=== PATIENT | female | born 1985 | race Two or more races ===

== ENCOUNTER 2017-11-03 01:24 | Day surgery (SDC) | payer OTHER ==
[~2017-11-03] VITALS: Ht 149.9 cm; Wt 81.9 kg
[2017-11-03] MEDS ORDERED: D5%-0.45% NACL 1,000 ML IV ONE (01:36)
[2017-11-03] MEDS ORDERED: PROMETHAZINE 25 MG/ML, 1ML ONE (01:46)
[2017-11-03] MEDS ORDERED: MORPHINE SULFATE 4 MG/ML, 1ML ONE (01:47)
[2017-11-03] MEDS ORDERED: CEFOTETAN PMX 1GM/50ML 50 ML ONE (01:47)
[2017-11-03] MEDS ORDERED: CEFOTETAN PMX 1GM/50ML 50 ML IV ONE (02:00)
[2017-11-03] MEDS ORDERED: MORPHINE SULFATE 4 MG/ML, 1ML IVPush PRN ×3 (02:00→10:00)
[2017-11-03] MEDS ORDERED: PROMETHAZINE 25 MG/ML, 1ML IM PRN (02:00)
[2017-11-03] MEDS ORDERED: BUPIVACAINE 0.25% ONE (02:27)
[2017-11-03] MEDS ORDERED: EPINEPHRINE 1 MG/ML, 1ML ONE (02:27)
[2017-11-03 02:56] VITALS: BP 115/54
[2017-11-03] MEDS ORDERED: CEFOTETAN 2 GM ONE (06:30)
[2017-11-03] MEDS ORDERED: MIDAZOLAM 1 MG/ML, 2ML ONE (06:30)
[2017-11-03] MEDS ORDERED: FENTANYL PF 100 MCG/2ML ONE (06:30)
[2017-11-03] MEDS ORDERED: LIDOCAINE GEL 2%, 5ML ONE (06:31)
[2017-11-03] MEDS ORDERED: ONDANSETRON 2MG/ML, 2ML ONE (06:58)
[2017-11-03] MEDS ORDERED: GLYCOPYRROLATE 0.2MG/1ML, 5ML ONE (06:58)
[2017-11-03] MEDS ORDERED: SUCCINYLCHOLINE 20 MG/ML, 10ML ONE (06:58)
[2017-11-03] MEDS ORDERED: NEOSTIGMINE 1 MG/ML, 10ML ONE (06:58)
[2017-11-03] MEDS ORDERED: DEXAMETHASONE 4 MG/ML, 1ML ONE (06:58)
[2017-11-03] MEDS ORDERED: CEFAZOLIN 1,000 MG ONE (06:58)
[2017-11-03] MEDS ORDERED: PROPOFOL 10 MG/ML, 20ML ONE (06:58)
[2017-11-03] MEDS ORDERED: ROCURONIUM 10MG/ML,5ML ONE ×2 (06:59)
[2017-11-03] MEDS ORDERED: KETOROLAC 30 MG/1 ML ONE (06:59)
[2017-11-03] MEDS ORDERED: PROMETHAZINE 25 MG/ML, 1ML IV PRN (07:30)
[2017-11-03] MEDS ORDERED: ALBUTEROL/IPRATROPIUM 2.5MG/0.5MG, 3 ML NPPB PRN (07:30)
[2017-11-03] MEDS ORDERED: FENTANYL PF 100 MCG/2ML IV PRN (07:30)
[2017-11-03] MEDS ORDERED: SCOPOLAMINE PATCH, 1.5MG PATCH.TD72 TD PRN (07:30)
[2017-11-03] MEDS ORDERED: MIDAZOLAM 1 MG/ML, 2ML IV PRN (07:30)
[2017-11-03] MEDS ORDERED: MEPERIDINE/PF 25MG/0.5ML IVPush PRN (07:30)
[2017-11-03] MEDS ORDERED: ACETAMINOPHEN 325 MG TABLET PO PRN (07:30)
[2017-11-03] MEDS ORDERED: EPHEDRINE 50 MG/ML, 1ML IM PRN (07:30)
[2017-11-03] MEDS ORDERED: LABETALOL 5MG/ML, 20ML IV PRN (07:30)
[2017-11-03] MEDS ORDERED: HYDROmorphone 1 MG/ML, 1ML IV PRN (07:30)
[2017-11-03] MEDS ORDERED: OXYcodone 5 MG/5 ML ORAL.SOL UDC PO PRN (07:30)
[2017-11-03] MEDS ORDERED: HYDROcodone/APAP 5/325 TABLET PO PRN (10:00)
[2017-11-03] MEDS ORDERED: HYDR-3240 PO (13:15)
== END 2017-11-03 13:39 ==
LOC: ED 01:51 → UNDOADMIN 01:54 → EDIP 01:54 → 4NOR 02:36 → EDIP 02:36 → OR 07:20 → UNDODISIN 13:39 → OR 13:39
PROVIDERS: ATTEND Surgery
DX: K35.80 Unspecified acute appendicitis (principal); Z88.1 Allergy status to other antibiotic agents; Z88.8 Allergy status to other drugs, medicaments and biological substances
CPT/HCPCS: 44970; 88304; 96365; 96375; 99285; J0171; J0330; J0690; J1100; J1885; J2250; J2405; J2550; J2704; J2710; J3010; J3490; S0074

== ENCOUNTER → 2018-06-05 | Outpatient (CLI) | payer OTHER ==
[~2018-06-05] MED LIST: HYDR-3240 PO
== END | disposition home or self-care (01) ==
LOC: CARD 14:13
PROVIDERS: ATTEND Orthopaedic Surgery
DX: R07.9 Chest pain, unspecified (principal); J45.909 Unspecified asthma, uncomplicated
CPT/HCPCS: 71046; 94060; 94726; 94729

== ENCOUNTER 2018-07-16 12:53 | Outpatient (CLI) | payer OTHER | END 2018-07-16 23:59 | disposition home or self-care (01) | LOC: RAD 12:53 | PROVIDERS: ATTEND Orthopaedic Surgery | DX: M17.12 Unilateral primary osteoarthritis, left knee (principal) ==